=== PATIENT | male | born 1965 | race Caucasian/White ===

== ENCOUNTER 2018-03-05 17:00 | Emergency (ER) | payer BC ==
--- NOTE | 2018-03-05 17:20 | ERPHSYRPT ---
- History of Present Illness Time Seen by Provider: 03/05/18 17:19 Source: patient Exam Limitations: no limitations Physician History: 52 y/o left handed white male presents with table saw laceration to left index finger inpta. his tetanus status is not utd. pt states he was fully flexing and extending left index finger. as it became more painful and swollen having a little more difficulty flexing middle phalanx. Timing/Duration: today Quality: painful Severity: moderate Location: none Possible Causes: other (accidental laceration by table saw.) Associated Symptoms: denies symptoms Allergies/Adverse Reactions: No Known Drug Allergies Allergy (Unverified 03/05/18 17:26) Home Medications: Dexlansoprazole [Dexilant] 60 mg DAILY 03/05/18 [History] - Review of Systems Constitutional: No Symptoms Eyes: No Symptoms Ears, Nose, & Throat: No Symptoms Respiratory: No Symptoms Cardiac: No Symptoms Abdominal/Gastrointestinal: No Symptoms Genitourinary Symptoms: No Symptoms Musculoskeletal: Injury (left index finger) Neurological: No Symptoms Psychological: No Symptoms Endocrine: No Symptoms Hematologic/Lymphatic: No Symptoms Immunological/Allergic: No Symptoms All Other Systems: Reviewed and Negative - Past Medical History Pertinent Past Medical History: No Neurological History: No Pertinent History ENT History: No Pertinent History Cardiac History: No Pertinent History Respiratory History: No Pertinent History Endocrine Medical History: No Pertinent History Musculoskeletal History: No Pertinent History GI Medical History: No Pertinent History History: No Pertinent History Psycho-Social History: No Pertinent History Male Reproductive Disorders: No Pertinent History - Past Surgical History Neuro Surgical History: No Pertinent History Cardiac: No Pertinent History Respiratory: No Pertinent History Gastrointestinal: No Pertinent History Genitourinary: No Pertinent History Musculoskeletal: No Pertinent History Male Surgical History: No Pertinent History - Nursing Vital Signs Nursing Vital Signs: Initial Vital Signs Temperature 98.8 F 03/05/18 17:24 Pulse Rate 78 03/05/18 17:24 Respiratory Rate 16 03/05/18 17:24 Blood Pressure 159/91 03/05/18 17:24 O2 Sat by Pulse Oximetry 97 03/05/18 17:24 Pain Scale Pain Intensity 0 - Physical Exam General Appearance: no apparent distress, mild distress, alert, anxiety Eye Exam: PERRL/EOMI Ears, Nose, Throat Exam: normal ENT inspection, moist mucous membranes Neck Exam: normal inspection, non-tender, supple, full range of motion Respiratory Exam: normal breath sounds, lungs clear, airway intact, No chest tenderness, No respiratory distress, No accessory muscle use, No rhonchi, No wheezing, No stridor Cardiovascular Exam: regular rate/rhythm Gastrointestinal/Abdomen Exam: soft, tenderness, No guarding, No rebound Rectal Exam: not done Back Exam: normal inspection, normal range of motion, No CVA tenderness, No vertebral tenderness Extremity Exam: lacerations (2.5cm laceration to radial aspect of left index finger. sensation intact; tendon function appears intact. no active bleeding.) Neurologic Exam: alert, oriented x 3, cooperative, cra officer II-XII nml as tested, sensation nml Skin Exam: normal color, warm, dry Lymphatic Exam: No adenopathy SpO2 Interpretation: normal Oxygen Delivery: Room Air Procedures - Laceration/Wound Repair Lateral Finger Wound Location: Left, hand (index finger) Wound Length (cm): 2.5 Wound's Depth, Shape: superficial, linear Wound Explored: clean Irrigated: Yes Hibiclens Prep: Yes Anesthesia: local, 1% Lidocaine Wound Debrided: minimal Wound Repaired With: sutures Suture Size/Type: 3-0 Number of Sutures: 7 Layer Closure?: No Sterile Dressing Applied?: Yes Splint Applied?: Yes Type of Splint Applied: finger Sling Applied?: No - Course Nursing assessment & vital signs reviewed: Yes Ordered Tests: Active Orders 24 hr Category Date Time Status Splint STAT Care 03/05/18 18:41 Active Wound Care STAT Care 03/05/18 18:00 Active HAND (MINIMUM 3 VIEWS) Stat Exams 03/05/18 18:41 Taken Medication Summary Discontinued Medications Generic Name Dose Route Start Last Admin Trade Name Freq PRN Reason Stop Dose Admin Bacitracin Zinc 0.9 gm 03/05/18 18:00 03/05/18 18:24 Baciguent Packet TP 03/05/18 18:01 1 gm STAT ONE Administration Bacitracin Zinc Confirm 03/05/18 18:13 Baciguent Packet Administered 03/05/18 18:14 Dose 1 gm .ROUTE .STK-MED ONE Cefazolin Sodium 1 g 03/05/18 18:00 03/05/18 18:24 Kefzol 1 Gm IM 03/05/18 18:01 1 g STAT ONE Administration Cefazolin Sodium Confirm 03/05/18 18:12 Kefzol 1 Gm Administered 03/05/18 18:13 Dose 1 g .ROUTE .STK-MED ONE Diphtheria/Tetanus/Acell Pertussis 0.5 ml 03/05/18 18:00 03/05/18 18:23 Adacel Vial IM 03/05/18 18:01 0.5 ml .ONCE ONE Administration Diphtheria/Tetanus/Acell Pertussis Confirm 03/05/18 18:13 Adacel Vial Administered 03/05/18 18:14 Dose 0.5 ml IM .STK-MED ONE Lidocaine HCl 5 ml 03/05/18 18:00 03/05/18 18:25 Xylocaine 1% Hcl 20 Ml Mdv IJ 03/05/18 18:01 5 ml STAT ONE Administration Lidocaine HCl Confirm 03/05/18 18:13 Xylocaine 1% Hcl 20 Ml Mdv Administered 03/05/18 18:14 Dose 5 ml .ROUTE .STK-MED ONE - Progress Progress: improved Counseled pt/family regarding: diagnosis, need for follow-up, rad results - Departure Time of Disposition: 19:23 Departure Disposition: Home Clinical Impression: Finger laceration Condition: Stable Critical Care Time: No Additional Instructions: keep current dressing in place for 36 hours then remove and wash daily with soap and water. cover with antibiotic ointment and nonstick gauze after each washing and replace splint. follow up with hand surgeon. call tomorrow to arrange appointment Prescriptions: Oxycodone HCl/Acetaminophen [Percocet 5-325 mg Tablet] 1 each PO Q6H PRN PRN # 12 tablet MDD 4 PRN Reason: Pain Cephalexin Mh 500 mg [Keflex 500 mg] 500 mg PO TID #15 capsule
[2018-03-05] MEDS ORDERED: BACIGUENT PACKET TP ONE (18:00)
[2018-03-05] MEDS ORDERED: XYLOCAINE 1% HCL 20 ML MDV IJ ONE (18:00)
[2018-03-05] MEDS ORDERED: Adacel Vial IM ONE ×2 (18:00→18:13)
[2018-03-05] MEDS ORDERED: KEFZOL 1 GM IM ONE (18:00)
[2018-03-05] MEDS ORDERED: KEFZOL 1 GM ONE (18:12)
[2018-03-05] MEDS ORDERED: XYLOCAINE 1% HCL 20 ML MDV ONE (18:13)
[2018-03-05] MEDS ORDERED: BACIGUENT PACKET ONE (18:13)
[2018-03-05 19:40] VITALS: BP 132/74; PULSE 84; O2SAT 98
[2018-03-05] MEDS ORDERED: STERILE WATER FOR INJECTION 20 ML IJ ONE (22:00)
--- NOTE | 2018-03-06 08:44 | XRAY ---
Indication: Index finger laceration. Comparison: None 3 views of the left hand demonstrates middle 2nd phalanx soft tissue swelling/laceration. No other bony, articular, or soft tissue abnormalities.
== END 2018-03-05 19:39 | disposition home or self-care (01) ==
LOC: ED 17:00
DX: S61.211A Laceration without foreign body of left index finger without damage to nail, initial encounter (principal); W31.2XXA Contact with powered woodworking and forming machines, initial encounter
CPT/HCPCS: 12001; 73130; 90471; 90715; 96372; 99284; J0690; A9270-GY